=== PATIENT | male | born 1955 | race Caucasian/White ===

== ENCOUNTER 2017-07-15 18:08 | Emergency (ER) | payer OTHER ==
[~2017-07-15] VITALS: Ht 185.4 cm; Wt 100.0 kg
[2017-07-15 18:10] VITALS: BP 180/102; PULSE 80; RESP 16; TEMP 98.6; O2SAT 98
[2017-07-15] MEDS ORDERED: MORPHINE SULFATE 2 MG/ML INJ IV PUSH ONE (19:00)
[2017-07-15] MEDS ORDERED: ONDANSETRON HCL 4 MG/2 ML VIAL IV PUSH ONE (19:00)
[2017-07-15] MEDS ORDERED: SODIUM CHLOR 0.9% 1000 ML INJ 1,000 ML IV ONE ×2 (19:00→20:00)
--- NOTE | 2017-07-15 19:12 | PD ---
HPI Chief Complaint: Flank/Kidney Pain Time Seen by Provider: 18:52 Travel History International Travel<30 days: No Contact w/Intl Traveler<30days: No Traveled to known affect area: No History of Present Illness HPI 61-year-old male that presents to the ED for evaluation of right flank pain. Per patient has a history of kidney stones as well as stents placed to remove the kidney stones. Patient follows with urologist in [place]. Patient states that he's had about 13 different stents. Per patient he gets pain on and off even with he doesn't have a kidney stone because of unclear cause. Per patient normally has been able to tell him but per patient his urologist believes is secondary to spasms and strictures from having multiple stents in that place. He denies any chest pain or shortness of breath. Per patient he came here for the race and he developed the pain and he thought he will be able to handle it and when into his hotel where he took some ibuprofen with minimal relief. Per patient the pain got more severe so he decided to come here to get evaluated. Per patient the pain currently is 8 out of 10. Mainly on the right side. Similar to his previous episodes. He denies any fevers chills or sweats. No allergies to medication. No other medical issues at this time. [facility] Social History Alcohol Use: No Tobacco Use: No Substance Use: No Allergies-Medications (Allergen,Severity, Reaction): Coded Allergies: No Known Allergies (Unverified , 07/15/17) Reported Meds & Prescriptions Reported Meds & Active Scripts Active Cipro (Ciprofloxacin HCl) 500 Mg Tab 500 Mg PO BID 7 Days Reported Flomax (Tamsulosin HCl) 0.4 Mg Cap 0.4 Mg PO HS Review of Systems Except as stated in HPI: all other systems reviewed are Neg Physical Exam Narrative GENERAL: SKIN: Warm and dry. HEAD: Atraumatic. Normocephalic. EYES: Pupils equal and round. No scleral icterus. No injection or drainage. ENT: No nasal bleeding or discharge. Mucous membranes pink and moist. Tongue is midline. No uvula deviation. NECK: Trachea midline. No JVD. CARDIOVASCULAR: Regular rate and rhythm. No murmurs, S3, S4. RESPIRATORY: No accessory muscle use. Clear to auscultation. Breath sounds equal bilaterally. GASTROINTESTINAL: Abdomen soft, non-tender, nondistended. Hepatic and splenic margins not palpable. MUSCULOSKELETAL: Extremities without clubbing, cyanosis, or edema. No obvious deformities. Full range of motion of the upper and lower extremities bilaterally. 2+ pulses bilaterally. NEUROLOGICAL: Awake and alert. No obvious cranial nerve deficits. Motor grossly within normal limits. Five out of 5 muscle strength in the arms and legs. Normal speech. PSYCHIATRIC: Appropriate mood and affect; insight and judgment normal. Data Data Last Documented VS Vital Signs Date Time Temp Pulse Resp B/P (MAP) Pulse Ox O2 Delivery O2 Flow Rate FiO2 07/15/17 18:10 98.6 80 16 180/102 (128) 98 Orders Orders Complete Blood Count With Diff (07/15/17 18:52) Comprehensive Metabolic Panel (07/15/17 18:52) Lactic Acid (07/15/17 18:52) Urinalysis - C+S If Indicated (07/15/17 18:52) Iv Access Insert/Monitor (07/15/17 18:52) Sodium Chlor 0.9% 1000 Ml Inj (Ns 1000 M (07/15/17 19:00) Ondansetron Inj (Zofran Inj) (07/15/17 19:00) Morphine Inj (Morphine Inj) (07/15/17 19:00) Ct Abd/Pel W/O Iv Contrast (07/15/17 ) Sodium Chlor 0.9% 1000 Ml Inj (Ns 1000 M (07/15/17 20:00) Urine Culture (07/15/17 19:25) Npo After Midnight W/ Po Meds (07/16/17 Breakfast) Ceftriaxone Inj (Rocephin Inj) (07/15/17 20:45) Ed Discharge Order (07/15/17 21:02) Ketorolac Inj (Toradol Inj) (07/15/17 21:15) Oxycodone-Acetamin 7.5-325 Mg (Percocet (07/15/17 21:15) Ciprofloxacin (Cipro) (07/15/17 21:15) Labs Laboratory Tests Test 07/15/17 19:25 White Blood Count 9.1 TH/MM3 Red Blood Count 4.74 MIL/MM3 Hemoglobin 15.5 GM/DL Hematocrit 45.0 % Mean Corpuscular Volume 95.0 FL Mean Corpuscular Hemoglobin 32.7 PG Mean Corpuscular Hemoglobin Concent 34.4 % Red Cell Distribution Width 13.2 % Platelet Count 224 TH/MM3 Mean Platelet Volume 8.0 FL Neutrophils (%) (Auto) 74.5 % Lymphocytes (%) (Auto) 14.4 % Monocytes (%) (Auto) 7.8 % Eosinophils (%) (Auto) 2.5 % Basophils (%) (Auto) 0.8 % Neutrophils # (Auto) 6.8 TH/MM3 Lymphocytes # (Auto) 1.3 TH/MM3 Monocytes # (Auto) 0.7 TH/MM3 Eosinophils # (Auto) 0.2 TH/MM3 Basophils # (Auto) 0.1 TH/MM3 CBC Comment DIFF FINAL Differential Comment Urine Color LIGHT-RED Urine Turbidity HAZY Urine pH 6.0 Urine Specific [place] 1.011 Urine Protein 100 mg/dL Urine Glucose (UA) NEG mg/dL Urine Ketones TRACE mg/dL Urine Occult Blood LARGE Urine Nitrite NEG Urine Bilirubin NEG Urine Urobilinogen LESS THAN 2.0 MG/DL Urine Leukocyte Esterase LARGE Urine RBC /hpf Urine WBC 112 /hpf Urine Bacteria FEW /hpf Urine Mucus FEW /lpf Microscopic Urinalysis Comment CULTURE INDICATED Blood Urea Nitrogen 23 MG/DL Creatinine 1.75 MG/DL Random Glucose 71 MG/DL Total Protein 6.2 GM/DL Albumin 3.4 GM/DL Calcium Level 9.0 MG/DL Alkaline Phosphatase 37 U/L Aspartate Amino Transf (AST/SGOT) 41 U/L Alanine Aminotransferase (ALT/SGPT) 34 U/L Total Bilirubin 0.3 MG/DL Sodium Level 140 MEQ/L Potassium Level 3.9 MEQ/L Chloride Level 104 MEQ/L Carbon Dioxide Level 26.8 MEQ/L Anion Gap 9 MEQ/L Estimat Glomerular Filtration Rate 40 ML/MIN Lactic Acid Level 0.6 mmol/L MDM Medical Decision Making Medical Screen Exam Complete: Yes Emergency Medical Condition: Yes Medical Record Reviewed: Yes Interpretation(s) CBC & BMP Diagram 07/15/17 19:25 Total Protein 6.2 L, Albumin 3.4, Calcium Level 9.0, Alkaline Phosphatase 37 L, Aspartate Amino Transf (AST/SGOT) 41 H, Alanine Aminotransferase (ALT/SGPT) 34, Total Bilirubin 0.3 Last Impressions Abdomen/Pelvis CT 07/15/17 0000 Signed Impressions: Service Date/Time: Saturday, July 15, 2017 19:10 - CONCLUSION: 1. 3 mm stone in the distal right ureter and with a caliber change of the ureter at this level. There is also moderate to severe right hydronephrosis. The right ureteral stent is presumably occluded. 2. A few small nonobstructing stones in both kidneys. There also small, scattered benign-appearing bilateral cysts. Gurinder Kline MD Differential Diagnosis Flank pain versus kidney stone versus acute on chronic flank pain versus hydronephrosis Narrative Course 60-year-old male that presents to the ED for evaluation of right flank pain. Patient was properly examined and was found to have signs and symptoms consistent appears to be flank pain. Concerning for hydronephrosis versus kidney stone. History of this in the past. Patient has a stent in place. Patient's urine does appear to be red and dark. Labs and imaging were ordered. Labs and imaging showed what appears to be kidney stone as well as hydronephrosis with what appears to be possible obstruction of the stent. Case was discussed in my attending Dr. Valiente who recommends urology consult. Dr. Lorenzo was contacted who recommended that the patient have the stent removed. He wanted me to have the patient have the option of whether he wanted to stay and have it done tomorrow morning or whether he wants to be treated for his pain and follow-up with his urologist when he gets back to [facility] tomorrow. Patient was given this option. Patient wanted to think about it. Case was discussed with my attending Dr. Valiente who spoke with the patient and apparently the patient opted to go back to [facility] to get the stent removed and be treated for his kidney stone. This was discussed with Dr. Lorenzo who is in agreement that this is reasonable. Please refer to my attendings note who discharged the patient. Diagnosis Primary Impression: Ureteral stent occlusion Qualified Codes: T83.192S - Other mechanical complication of indwelling ureteral stent, sequela Additional Impressions: Flank pain UTI (urinary tract infection) Qualified Codes: N39.0 - Urinary tract infection, site not specified; R31.9 - Hematuria, unspecified Patient Instructions: Narcotic given in the ED, General Instructions Additional Instructions: Take medications as prescribed. Follow-up with PCP. See ED for any worsening symptoms. Do not drink or drive while taking pain medication. Apply ice or heat as needed for pain Med/Other Pt SpecificInfo: Prescription(s) given Scripts Ciprofloxacin (Cipro) 500 Mg Tab 500 MG PO BID for Infection for 7 Days, #14 TAB 0 Refills Prov: Calos Valiente MD 07/15/17 Disposition: 01 DISCHARGE HOME Condition: Ubaldo Gaelano Jul 15, 2017 19:12
[2017-07-15] MEDS ORDERED: TAMS5CAP PO (19:25)
--- NOTE | 2017-07-15 19:39 | RADRPT ---
EXAM DATE/TIME: 07/15/2017 19:10 [place] COMPARISON: No previous studies available for comparison. INDICATIONS : Right flank with hematuria. ORAL CONTRAST: No oral contrast ingested. RADIATION DOSE: 15.54 CTDIvol (mGy) MEDICAL HISTORY : Renal calculi. SURGICAL HISTORY : Right ureteral stent ENCOUNTER: Initial ACUITY: 1 day PAIN SCALE: 8/10 LOCATION: Right flank TECHNIQUE: Volumetric scanning of the abdomen and pelvis was performed. Using automated exposure control and ad justment of the mA and/or kV according to patient size, radiation dose was kept as low as reasonably achievable to obtain optimal diagnostic quality images. DICOM format image data is available electro nically for review and comparison. FINDINGS: LOWER LUNGS: The visualized lower lungs are clear. LIVER: Homogeneous density without lesion. There is no dilation of the biliary tree. No calcified gallston es. SPLEEN: Normal size without lesion. PANCREAS: Within normal limits. KIDNEYS: Moderate to severe hydroureter and hydronephrosis seen on the right. A ureteral stent is present. A 3 mm stone is in the distal right ureter and the ureter is less distended below this. Edema is seen mcconnell rrounding the distended right renal pelvis. Several subcutaneous millimeter stones are seen scattered throughout the right kidney. On the left there is a 3 x 6 mm stone of the upper pole and several sub cutaneous millimeter stones of the lower pole. There are small scattered cysts of both kidneys, inclu ding peripelvic cysts on the left. ADRENAL GLANDS: Within normal limits. VASCULAR: There is no aortic aneurysm. BOWEL/MESENTERY: The stomach, small bowel, and colon demonstrate no acute abnormality. There is no free intraperitone al air or fluid. ABDOMINAL WALL: Within normal limits. RETROPERITONEUM: There is no lymphadenopathy. BLADDER: No wall thickening or mass. REPRODUCTIVE: Within normal limits. INGUINAL: There is no lymphadenopathy or hernia. MUSCULOSKELETAL: Within normal limits for patient age. CONCLUSION: 1. 3 mm stone in the distal right ureter and with a caliber change of the ureter at this level. There is also moderate to severe right hydronephrosis. The right ureteral stent is presumably occluded. 2. A few small nonobstructing stones in both kidneys. There also small, scattered benign-appearing bi lateral cysts. Gurinder Kline MD on July 15, 2017 at 19:32 Board Certified Radiologist. This report was verified electronically.
[2017-07-15 19:45] LABS: AUTOMATED NEUTROPHIL # 6.8 TH/MM3 (1.8-7.7); BASOPHIL # 0.1 TH/MM3 (0-0.2); BASOPHIL % 0.8 % (0.0-2.0); EOSINOPHIL # 0.2 TH/MM3 (0-0.4); EOSINOPHIL % 2.5 % (0.0-4.0); HEMOGLOBIN 15.5 GM/DL (13.0-17.0); LYMPH % 14.4 % (9.0-44.0); LYMPHOCYTE # 1.3 TH/MM3 (1.0-4.8); MEAN CORPUSCULAR HEMOGLOBIN 32.7 PG (27.0-34.0); MEAN CORPUSCULAR HGB CONC 34.4 % (32.0-36.0); MONO % 7.8 % (0.0-8.0); MONOCYTE # 0.7 TH/MM3 (0-0.9); NEUT % 74.5 % (16.0-70.0); PLATELET COUNT 224 TH/MM3 (150-450); RED BLOOD COUNT 4.74 MIL/MM3 (4.50-5.90); RED CELL DISTRIBUTION WIDTH 13.2 % (11.6-17.2); WHITE BLOOD COUNT 9.1 TH/MM3 (4.0-11.0)
[2017-07-15 19:55] LABS: BACTERIA, URINE FEW /hpf; BILIRUBIN, URINE NEG (NEG); BLOOD, URINE LARGE (NEG); GLUCOSE,URINE NEG (NEG); KETONE, URINE TRACE mg/dL (NEG); MUCUS URINE FEW /lpf (OCC); NITRITE,URINE NEG (NEG); URINE LEUKOCYTE ESTERASE LARGE (NEG)
[2017-07-15 19:56] LABS: URINE COLOR LIGHT-RED (YELLW/STRAW)
[2017-07-15 20:02] LABS: ALBUMIN 3.4 GM/DL (3.4-5.0); AST (GOT) 41 U/L (15-37); BICARBONATE 26.8 MEQ/L (21.0-32.0); BLOOD UREA NITROGEN 23 MG/DL (7-18); CHLORIDE 104 MEQ/L (98-107); CREATININE 1.75 MG/DL (0.60-1.30); GLOMERULAR FILTRATION RATE 40 ML/MIN (>89); GLUCOSE,RANDOM 71 MG/DL (74-106); SODIUM (NA) 140 MEQ/L (136-145)
[2017-07-15 20:03] LABS: ALT (GPT) 34 U/L (12-78)
[2017-07-15 20:05] LABS: ALKALINE PHOSPHATASE 37 U/L (45-117); TOTAL BILIRUBIN ADULT 0.3 MG/DL (0.2-1.0); TOTAL PROTEIN 6.2 GM/DL (6.4-8.2)
[2017-07-15] MEDS ORDERED: cefTRIAXone INJ 1,000 MG in SODIUM CHLORIDE 0.9% INJ 100 ML IV ONE (20:45)
[2017-07-15] MEDS ORDERED: CIPR-9 PO (21:04)
--- NOTE | 2017-07-15 21:05 | PD ---
Data Data Last Documented VS Vital Signs Date Time Temp Pulse Resp B/P (MAP) Pulse Ox O2 Delivery O2 Flow Rate FiO2 07/15/17 18:10 98.6 80 16 180/102 (128) 98 Orders Orders Complete Blood Count With Diff (07/15/17 18:52) Comprehensive Metabolic Panel (07/15/17 18:52) Lactic Acid (07/15/17 18:52) Urinalysis - C+S If Indicated (07/15/17 18:52) Iv Access Insert/Monitor (07/15/17 18:52) Sodium Chlor 0.9% 1000 Ml Inj (Ns 1000 M (07/15/17 19:00) Ondansetron Inj (Zofran Inj) (07/15/17 19:00) Morphine Inj (Morphine Inj) (07/15/17 19:00) Ct Abd/Pel W/O Iv Contrast (07/15/17 ) Sodium Chlor 0.9% 1000 Ml Inj (Ns 1000 M (07/15/17 20:00) Urine Culture (07/15/17 19:25) Npo After Midnight W/ Po Meds (07/16/17 Breakfast) Ceftriaxone Inj (Rocephin Inj) (07/15/17 20:45) Ed Discharge Order (07/15/17 21:02) Ketorolac Inj (Toradol Inj) (07/15/17 21:15) Oxycodone-Acetamin 7.5-325 Mg (Percocet (07/15/17 21:15) Labs Laboratory Tests Test 07/15/17 19:25 White Blood Count 9.1 TH/MM3 Red Blood Count 4.74 MIL/MM3 Hemoglobin 15.5 GM/DL Hematocrit 45.0 % Mean Corpuscular Volume 95.0 FL Mean Corpuscular Hemoglobin 32.7 PG Mean Corpuscular Hemoglobin Concent 34.4 % Red Cell Distribution Width 13.2 % Platelet Count 224 TH/MM3 Mean Platelet Volume 8.0 FL Neutrophils (%) (Auto) 74.5 % Lymphocytes (%) (Auto) 14.4 % Monocytes (%) (Auto) 7.8 % Eosinophils (%) (Auto) 2.5 % Basophils (%) (Auto) 0.8 % Neutrophils # (Auto) 6.8 TH/MM3 Lymphocytes # (Auto) 1.3 TH/MM3 Monocytes # (Auto) 0.7 TH/MM3 Eosinophils # (Auto) 0.2 TH/MM3 Basophils # (Auto) 0.1 TH/MM3 CBC Comment DIFF FINAL Differential Comment Urine Color LIGHT-RED Urine Turbidity HAZY Urine pH 6.0 Urine Specific [place] 1.011 Urine Protein 100 mg/dL Urine Glucose (UA) NEG mg/dL Urine Ketones TRACE mg/dL Urine Occult Blood LARGE Urine Nitrite NEG Urine Bilirubin NEG Urine Urobilinogen LESS THAN 2.0 MG/DL Urine Leukocyte Esterase LARGE Urine RBC /hpf Urine WBC 112 /hpf Urine Bacteria FEW /hpf Urine Mucus FEW /lpf Microscopic Urinalysis Comment CULTURE INDICATED Blood Urea Nitrogen 23 MG/DL Creatinine 1.75 MG/DL Random Glucose 71 MG/DL Total Protein 6.2 GM/DL Albumin 3.4 GM/DL Calcium Level 9.0 MG/DL Alkaline Phosphatase 37 U/L Aspartate Amino Transf (AST/SGOT) 41 U/L Alanine Aminotransferase (ALT/SGPT) 34 U/L Total Bilirubin 0.3 MG/DL Sodium Level 140 MEQ/L Potassium Level 3.9 MEQ/L Chloride Level 104 MEQ/L Carbon Dioxide Level 26.8 MEQ/L Anion Gap 9 MEQ/L Estimat Glomerular Filtration Rate 40 ML/MIN Lactic Acid Level 0.6 mmol/L [facility] Medical Record Reviewed: Yes Supervised Visit with EL: Yes Narrative Course CBC & BMP Diagram 07/15/17 19:25 Total Protein 6.2 L, Albumin 3.4, Calcium Level 9.0, Alkaline Phosphatase 37 L, Aspartate Amino Transf (AST/SGOT) 41 H, Alanine Aminotransferase (ALT/SGPT) 34, Total Bilirubin 0.3 Last Impressions Abdomen/Pelvis CT 07/15/17 0000 Signed Impressions: Service Date/Time: Saturday, July 15, 2017 19:10 - CONCLUSION: 1. 3 mm stone in the distal right ureter and with a caliber change of the ureter at this level. There is also moderate to severe right hydronephrosis. The right ureteral stent is presumably occluded. 2. A few small nonobstructing stones in both kidneys. There also small, scattered benign-appearing bilateral cysts. Gurinder Kline MD UA: UTI present Pain controlled D/w Pt's urologist who will see pt on Monday in [place] Cipro script Pt agrees to take no opioids for drive to [place] tomorrow Return precautions discussed Diagnosis Primary Impression: Flank pain Additional Impressions: Ureteral stent occlusion Qualified Codes: T83.192S - Other mechanical complication of indwelling ureteral stent, sequela UTI (urinary tract infection) Qualified Codes: N39.0 - Urinary tract infection, site not specified; R31.9 - Hematuria, unspecified Referrals: Urologist 2 days Med/Other Pt SpecificInfo: Prescription(s) given Scripts Ciprofloxacin (Cipro) 500 Mg Tab 500 MG PO BID for Infection for 7 Days, #14 TAB 0 Refills Prov: Calos Valiente MD 07/15/17 Disposition: 01 DISCHARGE HOME Condition: Stable Calos Valiente MD Jul 15, 2017 21:05
[2017-07-15] MEDS ORDERED: CIPROFLOXACIN 500 MG TAB PO ONE (21:15)
[2017-07-15] MEDS ORDERED: KETOROLAC TROMETHAMINE 30 MG/ML (IVP) VIAL IV PUSH ONE (21:15)
[2017-07-15] MEDS ORDERED: oxyCODONE/ACETAMINOPHEN 7.5 MG/325 MG TAB PO ONE (21:15)
== END 2017-07-15 21:55 | disposition home or self-care (01) ==
LOC: NEPE 18:08
DX: T83.19 Other mechanical complication of other urinary devices and implants (principal); N39.0 Urinary tract infection, site not specified; R31.9 Hematuria, unspecified; N13.2 Hydronephrosis with renal and ureteral calculous obstruction
CPT/HCPCS: 74176; 80053; 81001; 83605; 85025; 87086; 96361; 96365; 96375; 99285; J0696; J1885; J2270; J2405; J7030